=== PATIENT | female | born 1950 | race Caucasian/White ===

== ENCOUNTER 2020-11-05 17:01 | Emergency (ER) | payer OTHER ==
[2020-11-05 19:16] LABS: HEMOGLOBIN 16.7 gm/dl (12.3-15.3); RED BLOOD COUNT 5.64 M/UL (4.00-5.10); WHITE BLOOD COUNT 11.4 K/UL (4.5-11.0)
[2020-11-05] MEDS ORDERED: AUGMENTIN 875-1 EACH PO (21:02)
== END 2020-11-05 21:10 | disposition home or self-care (01) ==
LOC: ER1 17:01
PROVIDERS: Physician Assistant
DX: K57.32 Diverticulitis of large intestine without perforation or abscess without bleeding (principal); E11.9 Type 2 diabetes mellitus without complications; I10 Essential (primary) hypertension; Z90.49 Acquired absence of other specified parts of digestive tract; Z90.89 Acquired absence of other organs; Z88.8 Allergy status to other drugs, medicaments and biological substances
CPT/HCPCS: 80053; 81001; 83605; 83690; 85025; 87086; 99284; Q9967

== ENCOUNTER 2021-01-03 11:06 | Emergency (ER) | payer OTHER ==
[~2021-01-03 11:06] MED LIST: AUGMENTIN 875-1 EACH PO
[2021-01-03 11:57] LABS: HEMOGLOBIN 17.1 gm/dl (12.3-15.3); RED BLOOD COUNT 5.73 M/UL (4.00-5.10); WHITE BLOOD COUNT 11.3 K/UL (4.5-11.0)
[2021-01-03 12:50] LABS: BUN/CREATININE RATIO 10 (0-10)
[2021-01-03] MEDS ORDERED: Voltaren Gel 1 % TOP (15:15)
[2021-01-03] MEDS ORDERED: MEDROL DOSEPAK 24 MG PO (15:15)
== END 2021-01-03 15:20 | disposition home or self-care (01) ==
LOC: ER1 11:06
PROVIDERS: Physician Assistant Medical
DX: M47.22 Other spondylosis with radiculopathy, cervical region (principal); I10 Essential (primary) hypertension; J45.909 Unspecified asthma, uncomplicated
CPT/HCPCS: 72125; 73030; 80053; 82550; 82553; 83874; 84484; 85025; 93005; 96374; 99284; J1100